=== PATIENT | male | born 1940 | race Two or more races ===

== ENCOUNTER 2024-02-29 07:50 | Outpatient (CLI) | payer MEDICARE, SELFPAY | END 2024-02-29 07:51 | disposition home or self-care (01) | LOC: NFLDREF 03-02 03:07 | PROVIDERS: Visit Provider Internal Medicine Nephrology | DX: E11.9 Type 2 diabetes mellitus without complications (principal); I10 Essential (primary) hypertension; N18.32 Chronic kidney disease, stage 3b; Z87.438 Personal history of other diseases of male genital organs | CPT/HCPCS: 80069; 82043; 82570; 87086 ==

== ENCOUNTER 2024-09-22 09:15 | Outpatient (CLI) | payer MEDICARE, SELFPAY | END 2024-09-22 09:16 | disposition home or self-care (01) | LOC: NFLDREF 10-03 15:02 | PROVIDERS: Visit Provider Internal Medicine Nephrology | DX: I10 Essential (primary) hypertension (principal); N18.32 Chronic kidney disease, stage 3b | CPT/HCPCS: 80053; 82043; 82570; 87086 ==

== ENCOUNTER 2024-10-25 07:40 | Outpatient (CLI) | payer MEDICARE, SELFPAY | END 2024-10-25 07:41 | disposition home or self-care (01) | LOC: NFLDREF 10-29 01:40 | PROVIDERS: Visit Provider Internal Medicine Nephrology | DX: N18.32 Chronic kidney disease, stage 3b (principal) | CPT/HCPCS: 80069 ==

== ENCOUNTER 2025-03-27 08:00 | Outpatient (CLI) | payer MEDICARE, SELFPAY | END 2025-03-27 08:01 | disposition home or self-care (01) | LOC: NFLDREF 03-28 15:23 | PROVIDERS: Visit Provider Internal Medicine Nephrology | DX: N18.32 Chronic kidney disease, stage 3b (principal) | CPT/HCPCS: 80069; 82043; 82570; 87086 ==

== ENCOUNTER 2025-05-31 07:51 | Emergency (ER) | payer MEDICARE, SELFPAY ==
--- OUTSIDE RECORDS SUMMARY | 2023-01-09 19:00 | XMS_ITS | Continuity of Care Document ---
Author Organization [facility] Address [address] [place] [address] Phone Care Team Providers Care Tub Mender Name Role Phone Rafita [place] MD Unavailable Unavailable Advance Directives Directive Yes / No Effective Date File Name No Information Encounters Encounter Description Practice Location Reason(s) For Visit Diagnoses Date Provider Providers Copied on Encounter [facility], [address], [place], [id number], [place] tel:[phone] [facility] No Information 3 Ashwin Eller. [address], [address], [place], [place], [id number] , [place]. tel:[phone] Family History Family Member Type Diagnosis Age At Onset No Information Payers Payer name Insurance type Covered constitution party ID Authoriza tion(s) No Information Social History Type Description Quantity Date Captured Comments Sex Male Smoking Status No Information Chief Complaint And Reason For Visit No Information Reason For Referral Reason For Referral No Information History Of Present Illness Encounter Date Complaint History Of Prese nt Illness No Information Functional Status Date Functional Assessmen t No Information Instructions Date Instruction Additional Infor mation 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, unspecified, 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, unspecified, bilateral Impression/Plan Related to Type 2 diabetes mellitus without complications Impression/Plan 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, right eye Impression/Plan Related to Type 2 diabetes mellitus without complications Impression/Plan Related to 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, 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, unspecified, 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, unspecified, bilateral Impression/Plan Related to Presb yopia Impression/Plan Related to Regul ar astigmatism, bilateral Impression/Plan Related to Myopi a, bilateral Impression/Plan Related to 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, bilateral Impression/Plan Related to Type 2 diabetes mellitus without complications Impression/Plan 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 Impression/Plan Related to 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, bilateral Impression/Plan Related to Type 2 diabetes mellitus without complications Impression/Plan 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
--- OUTSIDE RECORDS SUMMARY | 2023-01-09 19:00 | XMS_ITS | Continuity of Care Document ---
Author Organization [facility] Address [address] [place] [address] Phone Care Team Providers Care Panel Builder Name Role Phone Rafita [place] MD Unavailable Unavailable Advance Directives Directive Yes / No Effective Date File Name No Information Encounters Encounter Description Practice Location Reason(s) For Visit Diagnoses Date Provider Providers Copied on Encounter [facility], [address], [place], [id number], [place] tel:[phone] [facility] No Information 3 Ashwin Eller. [address], [address], [place], [place], [id number] , [place]. tel:[phone] Family History Family Member Type Diagnosis Age [...]
--- OUTSIDE RECORDS SUMMARY | 2025-04-27 07:38 | XMS_ITS | Encounter Summary ---
Author Organization [facility] Address [address] [place] [address] Care Team Providers Care Paint Specialist Name Role Phone Alexandre Patel M.D. [facility] Encounter Details Date Type Department Care Team (Latest Contact Info) Description 04/27/2025 7:38 AM CDT - 04/27/2025 11:59 PM CDT Hospital Encounter Department of Laboratory Medicine in [place], [place] [address] [place] [phone] Alexandre Patel M.B.B.S., MErnesto. [address] [place] [phone] Elevated Prostate-Specific Antigen; Diabetes Mellitus Type 2 With Diabetic Chronic Kidney Disease (HCC) Discharge Disposition: Home or Self Care Social History Tobacco Use Types Packs/Day Years Used Date Smoking Tobacco: Former Cigarettes 1 3 1 964 - 07/29/1967 Smokeless Tobacco: Never Alcohol Use Standard Drinks/Week Comments Not Currently 0 (1 standard drink = 0.6 oz pur e alcohol) [facility] Utilities Answer Date Recorded In the past 12 months has e electric, gas, oil, or water [employer] threatened to shut off services in your home? No 10/21/2024 Humiliation, Afraid, Rape, and Kick questionnair e Answer Date Recorded Within the last year, have y ou been afraid of your partner or ex-partner? No 04/29/2023 Within the last year, have y ou been humiliated or emotionally abused in other ways by your partner or ex-partner? No Within the last year, have y ou been kicked, hit, slapped, or otherwise physically hurt by your partner or ex-partner? No 04/29/2023 Within the last year, have y ou been raped or forced to have any kind of sexual activity by your partner or ex-partner? No 04/29/2023 Hunger Vital Sign Answer Date Recorded Within the past 12 months, y ou worried that your food would run out before you got the money to buy more. Never true 10/21/19 25 Within the past 12 months, t he food you bought just didn't last and you didn't have money to get more. Never true 10/21/2024 PRAPARE - Transportation Answer Date Re corded In the past 12 months, has l ack of transportation kept you from medical appointments or from getting medications? No 03/2025 In the past 12 months, has l ack of transportation kept you from meetings, work, or from getting things needed for daily living? No 10/21/2024 Housing Stability Answer Date Recorded What is your living situation today? [facility] to live 10/21/2024 Sex and Gender Information Value Date Recorded Sex Assigned at Male 04/29/2023 9:01 AM CDT Legal Sex Male 11:07 AM CDT Gender Identity Male 04/29/2023 9:01 AM CDT Sexual Orientation Not on file documented as of this encounter Medications at Time of Discharge amLODIPine (Norvasc) 10 mg tabletIndications :Hypertension Essential Primary TAKE 1 TABLET DAILY 90 tablet 3 03/31/2025 ascorbic acid, vitamin C, (Vitamin C) 1,000 mg tablet Take 1,000 mg by mouth daily. 10/31/[address] tablet Take 81 mg by mouth daily. calcium citrate (CALCITRATE) 950 mg (200 mg calcium) tablet Take by mouth daily with breakfast. [email or web address] brand cholecalciferol, vitamin D3, (cholecalciferol) 25 mcg (1,000 Unit) tablet Take 25 mcg by mouth daily. co-enzyme Q-10 (CO Q-10) 100 mg capsule Take 200 mg by mouth daily. cyanocobalamin (Vitamin B-12) 500 mcg tablet Take 500 mcg by mouth daily. dapagliflozin propanediol (Farxiga) 5 mg tabletIndications :Chronic Kidney Disease (CKD), Stage 3b Glomerular Filtration Rate (GFR) 30 To 44 (HCC),Hypertensio n Essential Primary,Proteinur ia Take 1 tablet (5 mg total) by mouth daily. Brand name only 90 tablet 3 10/07/2024 6 fluticasone propionate (Flonase) 50 mcg/actuation nasal sprayIndications: Rhinitis Allergic USE 2 SPRAYS IN EACH NOSTRIL DAILY 48 g 3 03/31/2025 hydrALAZINE (Apresoline) 50 mg tabletIndications :Hypertension Essential Primary Take 1 tablet (50 mg total) by mouth 3 (three) times a day. 270 tablet 3 12/27/2024 magnesium gluconate (Magonate) 27.5 mg of magnesium (500 mg) tablet Take 27.5 mg of magnesium by mouth daily. multivitamin tablet Take 1 tablet by mouth daily. olmesartan (Benicar) 40 mg tabletIndications :Hypertension Essential Primary TAKE 1 TABLET DAILY 90 tablet 3 04/28/2025 rosuvastatin (Crestor) 10 mg tabletIndications :Hyperlipidemia Take 1 tablet (10 mg total) by mouth daily. 90 tablet 3 11/29/2024 6 semaglutide (Ozempic) 1 mg/dose (4 mg/3 mL) injectionIndicati ons:Diabetes Mellitus Type 2 With Diabetic Chronic Kidney Disease (HCC) Inject 1 mg under the skin every 7 (seven) days. 3 mL 3 01/27/2025 tamsulosin (Flomax) 0.4 mg 24 hr capsuleIndication s:Benign Prostatic Hyperplasia Without Obstruction TAKE 1 CAPSULE DAILY 90 capsule 3 03/31/2025 torsemide (Demadex) 20 mg tabletIndications :Hypertension Essential Primary Take 1 tablet (20 mg total) by mouth daily. 01/31/2025 6 UNABLE TO FIND daily. Med Name: Super C (nature made) UNABLE TO FIND daily. Med Name: Prostate Plus vitamin E 180 mg (400 Unit) capsule Take 180 mg by mouth daily. carvediloL (Coreg) 25 mg tabletIndications :Hypertension Essential Primary TAKE 1 TABLET TWICE DAILY WITH MEALS 180 tablet 3 08/24/2024 5 ludeufhh-nbd-ohhn ous sulfate (One Daily Multi-Vit w-Mineral) 4.5 mg iron tablet Take 1 capsule by mouth daily. 10/31/2009 5 olmesartan (Benicar) 40 mg tabletIndications :Hypertension Essential Primary take 1 tablet daily 90 tablet 3 05/10/2024 5 documented as of this encounter Plan of Treatment Not on file documented as of this encounter Procedures Procedure Name Priority Date/Time Associated Diagnosis Comments PROSTATE-SPECIFIC AG (PSA) SCRN, S Routine 04/27/2025 7:46 AM CDT Elevated Prostate-Specific Antigen HEMOGLOBIN A1C, B Routine 04/27/2025 7:4 6 AM CDT Diabetes Mellitus Type 2 With Diabetic Chronic Kidney Disease (HCC) documented in this encounter Results * (ABNORMAL) Hemoglobin A1c (04/27/2025 7:46 AM CDT) Hemoglobin A1c, B 7.1(H) 4.2 - 5.6 % 04/27/2025 11:02 AM CDT [facility] Comment: Hemoglobin A1c values greater than or equal to 6.5 percent are diagnostic for diabetes mellitus. Diagnosis should be confirmed by repeat testing. In diabetic patients, HbA1c goals should be discussed with healthcare provider. Blood (Blood, Venous) 04/27/2025 7:46 AM CDT 04/27/2025 10:37 AM CDT us Alexandre [place] M.D. LAB BLOOD ADD-O N Final Result [facility] [address] [place] [address], [place] [facility] [place] [address] [place] [address] * (ABNORMAL) PSA (Prostate-Specific Antigen) Screen (04/27/2025 7:46 AM CDT) Prostate-Specific Ag 11.4(H) <=7.2 ng/mL 04/27/2025 11:48 AM CDT OW Comment: ----ADDITIONAL INFORMATION---- The testing method is an electrochemiluminescence assay manufactured by [employer] and performed on the Modular or Anibal system. Values obtained with different assay methods or kits may be different and cannot be used interchangeably. Test results cannot be interpreted as absolute evidence for the presence or absence of malignant disease. Blood (Blood, Venous) 04/27/2025 7:46 AM CDT 04/27/2025 10:37 AM CDT Alexandre [place] M.D. LAB BLOOD ADD-O N Final Result [facility] [address] [place] [address], [facility] [place] [address] [place] [address] documented in this encounter Visit Diagnoses Diagnosis Elevated Prostate-Specific Antigen Diabetes Mellitus Type 2 With Diabetic Chronic Kidney Disease (HCC) documented in this encounter Additional Health Concerns Assessment Noted Time A fall risk assessment has been complete d for the patient 02/23/2024 8:58 AM CDT documented as of this encounter Care Teams Paint Specialist Relationship Specialty Start Date End Date Alexandre Patel M.B.B.S., M.D. [address] [place] [phone] PCP - General Family Medicine 09/24/23 documented as of this encounter
--- OUTSIDE RECORDS SUMMARY | 2025-05-02 08:40 | XMS_ITS | Encounter Summary ---
Author Organization [facility] Address [address] [place] [address] Care Team Providers Care Fire Crew Specialist Name Role Phone Alexandre Patel M.D. Primary Care [facility] Reason for Referral * Outpatient (Routine) - Authorized Specialty Diagnoses / Procedures Referred By Aron finch Referred To Contact Family Medicine Diagnoses Diabetes Mellitus Type 2 With Diabetic Chronic Kidney Disease (HCC) Alexandre Patel M.B.B.S., M.D. [address] [place] [phone] Phone: tel: fax: [facility] Region Referral ID Status Reason Start Date Expiration Date V isits Requested Visits Authorized [id number] Authorized 05/02/2025 11/01/2026 1 1 Reason for Visit * Reason Comments Follow-up 3 month labs done and AWV after with RN * Appointment Request (Routine) - Closed Specialty Diagnoses / Procedures Referred By Aron finch Referred To Contact Family Medicine Referral ID Status Reason Start Date Expiration Date Visits Re quested Visits Authorized [id number] Closed 03/21/2025 06/21/2026 1 1 Encounter Details Date Type Department Care Team (Late st Contact Info) Description 05/02/2025 8:40 AM CDT Office Visit Department of Family Medicine, [facility], in [place], [place] [address] [place] [phone] Alexandre Patel M.B.B.S., M.D. [address] [facility] [place] [phone] Benign Prostatic Hyperplasia Without Obstruction (Primary Dx); Hypertension Essential Primary; Diabetes Mellitus Type 2 With Diabetic Chronic Kidney Disease (HCC) Social History Tobacco Use Types Packs/Day Years Used Date Smoking Tobacco: Former Cigarettes 1 3 1 964 - 07/29/1967 Smokeless Tobacco: Never Tobacco Cessation:Counseling Given: Not Answered Alcohol Use Standard Drinks/Week Comments Not Currently 0 (1 standard drink = 0.6 oz pur e alcohol) Humiliation, Afraid, Rape, and Kick questionnair e [...] the money to buy more. Never true 05/02/20 25 Within the past 12 months, t he food you bought just didn't last and you didn't have money to get more. Never true 05/02/2025 PRAPARE - Transportation Answer Date Re corded In the past 12 months, has l ack of transportation kept you from medical appointments or from getting medications? No 04/14 In the past 12 months, has l ack of transportation kept you from meetings, work, or from getting things needed for daily living? No 05/02/2025 [facility] Utilities Answer Date Recorded In the past 12 months has th e electric, gas, oil, or water company threatened to shut off services in your home? No 05/02/2025 Housing Stability Answer Date Recorded What is your living situation today? [facility] place to live 05/02/2025 Sex and Gender Information Value Date Recorded Sex Assigned at Male 04/29/2023 9:01 AM CDT Legal Sex Male 11:07 AM CDT Gender Identity Male 04/29/2023 9:01 AM CDT Sexual Orientation Not on file documented as of this encounter Last Filed Vital Signs Vital Sign Reading Time Taken Comments Blood Pressure 135/77 05/02/2025 8:35 AM CDT Pulse 75 05/02/2025 8:35 AM CDT Temperature 36.6 C (97.9 F) 05/02/2025 8:35 AM CDT Respiratory Rate 20 05/02/2025 8:35 AM CDT Oxygen Saturation - - Inhaled Oxygen Concentration - - Weight 78 kg (171 lb 13.6 oz) 05/02/2025 8:35 AM CDT Height 179 cm (5' 10.47) 05/02/2025 8:35 AM CDT Body Mass Index 24.33 05/02/2025 8:35 AM CDT documented in this encounter Progress Notes * Alexandre Patel M.B.B.S., MErnesto. - 05/02/2025 8:40 AM CDT DATE OF VISIT: 05/02/2025 SUBJECTIVE CHIEF COMPLAINT / REASON FOR VISIT Haim Scott is a 85 y.o. male who presents for evaluation of Follow- up (3 month labs done 04/27 and AWV after with RN ). The patient verbally consented to an audio recording of their visit to assist with the completion of documentation. History of Present Illness Haim Scott is an 85 year old male with diabetes and kidney disease who presents for a follow-up visit. He frequently feels cold. His prefers a cooler home environment, keeping the house at 68 degrees, which contributes to his feeling cold. He is not engaging in activities to maintain muscle mass due to pain associated with arthritis in his hands. He has difficulty with tasks such as opening bottles and cans due to arthritis in his hands. He uses Voltaren gel for pain relief. He received a shingles vaccine about five or six years ago in [place]. He has not received the RSV vaccine and is hesitant about the COVID vaccine due to a past negative experience with the flu vaccine, which made him very sick. He is currently on Ozempic for diabetes management without side effects such as nausea or abdominaldiscomfort. He is also on carvedilol and Flomax, with no reported issues. He urinates two to three times a night but does not have trouble urinating. He has a history of allergies to pollen and atenolol, although he is unsure about the latter as he does not recall taking it. He is currently on carvedilol, which is in the same class as atenolol, without any issues. OBJECTIVE VITAL SIGNS BP 135/77 (BP Location: Left arm, Patient Position: Sitting, Cuff Size: Regular) Pulse 75 Temp 36.6 ??C (Temporal) Resp 20 Ht 179 cm Wt 78 kg BMI 24.33 kg/m?? Physical Exam Vitals reviewed. Constitutional General: He is not in acute distress. Appearance: Normal appearance. He is not ill-appearing. HENT Head: Normocephalic and atraumatic. Cardiovascular Rate and Rhythm: Normal rate and regular rhythm. Pulmonary Effort: Pulmonary effort is normal. No respiratory distress. Breath sounds: Normal breath sounds. No wheezing. Musculoskeletal General: Normal range of motion. Cervical back: Normal range of motion. No rigidity. Neurological General: No focal deficit present. Mental Status: He is alert and oriented to person, place, and time. Physical Exam ASSESSMENT/ PLAN Hypertension Essential Primary Blood pressure is well-controlled with current medication regimen, including carvedilol. - Renew carvedilol prescription. Orders: carvediloL (Coreg) 25 mg tablet; Take 1 tablet (25 mg total) by mouth 2 (two) times a day with meals. Diabetes Mellitus Type 2 With Diabetic Chronic Kidney Disease (HCC) Type 2 Diabetes Mellitus A1c is well-controlled with current treatment, including Ozempic. Plans to increase Ozempic dose tooptimize benefits, as he tolerates the medication well without side effects. - Increase Ozempic to 2 mg. - Order A1c tests every 3 months for the next year. Chronic Kidney Disease Under the care of a extruder operator horizontal with regular follow-ups every six months. Lime Puller manages kidney function monitoring. - Continue nephrology follow-ups every six months. Orders: semaglutide (Ozempic) 2 mg/dose (8 mg/3 mL) injection; Inject 2 mg under the skin every 7 (seven) days. Hemoglobin A1c; Future Hemoglobin A1c; Future Hemoglobin A1c; Future Hemoglobin A1c; Future Family Medicine office visit (clinic); Future Benign Prostatic Hyperplasia Without Obstruction Reports nocturia but no difficulty urinating. Currently on Flomax for BPH management. - Continue Flomax for BPH management. 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 Using Voltaren gel for relief. - Continue Voltaren gel for pain management. Follow-up Scheduled for an MRI for elevated PSA, and results will be reviewed and communicated. Follow-up appointment scheduled for July, with flexibility to reschedule if needed. - Review MRI results and communicate findings. - Schedule follow-up appointment in July, with flexibility to reschedule if needed. documented in this encounter Miscellaneous Notes * Assessment & Plan Note - Alexandre Patel M.B.B.S., M.D. - 05/02/2025 8:40 AM CDTAssociated Problem(s): Hypertension Essential Primary Blood pressure is well-controlled with current medication regimen, including carvedilol. - Renew carvedilol prescription. Orders: carvediloL (Coreg) 25 mg tablet; Take 1 tablet (25 mg total) by mouth 2 (two) times a day with meals. * Assessment & Plan Note - Alexandre Patel M.B.B.S., M.D. - 05/02/2025 8:40 AM CDTAssociated Problem(s): Diabetes Mellitus Type 2 With Diabetic Chronic Kidney Disease (HCC) Type 2 Diabetes Mellitus A1c is well-controlled with current treatment, including Ozempic. Plans to increase Ozempic dose tooptimize benefits, as he tolerates the medication well without side effects. - Increase Ozempic to 2 mg. - Order A1c tests every 3 months for the next year. Chronic Kidney Disease Under the care of a extruder operator horizontal with regular follow-ups every six months. Lime Puller manages kidney function monitoring. - Continue nephrology follow-ups every six months. Orders: semaglutide (Ozempic) 2 mg/dose (8 mg/3 mL) injection; Inject 2 mg under the skin every 7 (seven) days. Hemoglobin A1c; Future Hemoglobin A1c; Future Hemoglobin A1c; Future Hemoglobin A1c; Future Family Medicine office visit (clinic); Future * Assessment & Plan Note - Alexandre Patel M.B.B.S., M.D. - 05/02/2025 8:40 AM CDTAssociated Problem(s): Benign Prostatic Hyperplasia Without Obstruction Reports nocturia but no difficulty urinating. Currently on Flomax for BPH management. - Continue Flomax for BPH management. 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 Using Voltaren gel for relief. - Continue Voltaren gel for pain management. Follow-up Scheduled for an MRI for elevated PSA, and results will be reviewed and communicated. Follow-up appointment scheduled for July, with flexibility to reschedule if needed. - Review MRI results and communicate findings. - Schedule follow-up appointment in July, with flexibility to reschedule if needed. documented in this encounter Plan of Treatment Scheduled Orders Name Type Priority Associated Diagnoses Orde r Schedule Hemoglobin A1c Lab Routine Diabetes Mellitus Type 2 With Diabetic Chronic Kidney Disease (HCC) Expected: 11/02/2025 (Approximate), Expires: 08/02/2026 Hemoglobin A1c Lab Routine Diabetes Mellitus Type 2 With Diabetic Chronic Kidney Disease (HCC) Expected: 08/02/2025 (Approximate), Expires: 08/02/2026 Hemoglobin A1c Lab Routine Diabetes Mellitus Type 2 With Diabetic Chronic Kidney Disease (HCC) Expected: 05/02/2026 (Approximate), Expires: 08/02/2026 Hemoglobin A1c Lab Routine Diabetes Mellitus Type 2 With Diabetic Chronic Kidney Disease (HCC) Expected: 01/30/2026 (Approximate), Expires: 08/02/2026 Scheduled Referrals Name Type Priority Associated Diagnoses Orde r Schedule Family Medicine office visit (clinic) Outpatient Referral Routine Diabetes Mellitus Type 2 With Diabetic Chronic Kidney Disease (HCC) Expected: 08/02/2025 (Approximate), Expires: 08/02/2026 documented as of this encounter Visit Diagnoses Diagnosis Benign Prostatic Hyperplasia Without Obstruction- Primary Hypertension Essential Primary Diabetes Mellitus Type 2 With Diabetic Chronic Kidney Disease (HCC) documented in this encounter Additional Health Concerns Assessment Noted Time A fall risk assessment has been complete d for the patient 02/23/2024 8:58 AM CDT documented as of this encounter Care Teams Fire Crew Specialist Relationship Specialty Start Date End Date Alexandre Patel M.B.BKishaSKisha, M.Neil. [address] [place] [phone] PCP - General Family Medicine 09/24/23 documented as of this encounter
--- OUTSIDE RECORDS SUMMARY | 2025-05-02 09:00 | XMS_ITS | Encounter Summary ---
Author Organization [facility] Address [address] [place] [address] Care Team Providers Care Assistant Professor Of Music Name Role Phone Alexandre Patel M.D. Primary Care P andi Reason for Referral * Outpatient (Routine) - Authorized Specialty Diagnoses / Procedures Referred By Aron finch Referred To Contact Alexandre Patel M.B.B.S., M.D. [address] [place] [phone] Phone: tel: fax: [facility] Region Referral ID Status Reason Start Date Expiration Date V isits Requested Visits Authorized [id number] Authorized 05/02/2025 11/01/2026 1 1 Scheduling Instructions 12-Month Medicare Visit Reason for Visit * Reason Comments Medicare Annual Wellness Visit Subsequen t * Outpatient (Routine) - Closed Specialty Diagnoses / Procedures Referred By Contpete t Referred To Contact Alexandre Patel M.B.B.S., M.D. [address] [place] [phone] Phone: tel: fax: [facility] Region Referral ID Status Reason Start Date Expiration Date Visits Re quested Visits Authorized [id number] Closed 02/14/2025 08/16/2026 1 1 Encounter Details Date Type Department Care Team (Late st Contact Info) Description 05/02/2025 9:00 AM CDT Office Visit Department of Family Medicine, [facility], in [place], [place] [address] [place] [phone] Alexandre Patel M.B.B.S., MJanett [address] [place] [phone] Rhonda Lutz R.N. Annual Medicare Examination Return (Primary Dx) Social History Tobacco Use Types Packs/Day Years [...] things needed for daily living? No 05/02/2025 [facility] Utilities Answer Date Recorded In the past 12 months has th e electric, gas, oil, or water company threatened to shut off services in your home? No 05/02/2025 Housing Stability Answer Date Recorded What is your living situation today? I have a naren place to live 05/02/2025 Sex and Gender Information Value Date Recorded Sex Assigned at Male 04/29/2023 9:01 AM CDT Legal Sex Male 11:07 AM CDT Gender Identity Male 04/29/2023 9:01 AM CDT Sexual Orientation Not on file documented as of this encounter Patient Instructions * Patient Instructions* Rhonda Lutz R.N. - 05/02/2025 9:00 AM CDT Thank you for coming in today! Consider: - Adding a variety of fruits and vegetables to your diet and/or limiting processed foods - Preventative immunizations; RSV, Hepatitis B, and Covid - at pharmacy, if desired. - Reviewing and completing an Advanced Health Care Directive and bringing in a copy to scan for your health record - Starting an exercise routine, start slow. Example: walking 10-15 minutes 3 to 4 times a week and increasing to 30 minutes 3 to 4 times a week; can be done in a mall or large store if outside is notan option - Yearly dental cleanings - Yearly eye exams Continue: - Eating a healthy diet; a variety of fruits and vegetables, minimizing processed foods and eating out - Keeping your home free of clutter, minimizing fall risks - Remaining physically active, following an exercise routine if you have one, or being up and moving frequently throughout the day - Remaining active in your community; group activities, volunteering - Staying up to date with your provider, keeping annual exams or follow ups, communicating health changes documented in this encounter Progress Notes * Rhonda Lutz R.N. - 05/02/2025 9:00 AM CDT HEALTH ASSESSMENT Reason For Visit Patient presents with Medicare Annual Wellness Visit Subsequent Face to Face The following portions of the patient's history were reviewed and updated as appropriate: allergies, medications, family history, social history, surgical history and care team/suppliers. VITALS Blood Pressure: 135/77 (05/02/2025 8:35 AM) Temperature: 36.6 ??C (05/02/2025 8:35 AM) Temp Source: Temporal (05/02/2025 8:35 AM) Pulse Rate: 75 (05/02/2025 8:35 AM) Resp Rate: 20 (05/02/2025 8:35 AM) BMI (Calculated): 24.3 kg/m?? (05/02/2025 8:35 AM) Height: 179 cm (05/02/2025 8:35 AM) Weight: 78 kg (05/02/2025 8:35 AM) Health Risk Assessment and Social Drivers of Health Health Risk Assessment (HRA) completed and reviewed: Yes Social Drivers of Health (SDOH) questionnaires were reviewed during this visit. The following concerns were prioritized to be addressed: No concerns identified. Spent 5 minutes reviewing the SDOH questionnaire responses with the patient. Depression Screening PHQ-2 Score: (Proxy-Rptd) 0 Cognitive Assessment Cognitive function assessed by direct observation without concerns. Current Opioid Use None Education regarding non-opioid options for pain management not applicable at this time. FUNCTIONAL/HOME ENVIRONMENT History of falls: Have you fallen within the last year or do you fear you might fall?: (Patient-Rptd) No (05/02/2025 8:16 AM) Do you use an assisted device to walk? (Walker, cane, wheelchair, crutch): (Patient-Rptd) No (05/02/2025 8:16 AM) Today, do you feel any of the following? Weak, dizzy, shaky, or unsteady?: (Patient-Rptd) No (05/02/2025 8:16 AM) Have you taken any medication within the last 6 hours which may make you feel drowsy? Such as sleep, pain, or anxiety medication: (Patient-Rptd) No (05/02/2025 8:16 AM) Home Safety Patient's home contains the following: Throw Rugs No. Adequate lighting: Yes. Slippery bathtub and/or shower surfaces: No. Grab bars installed in the bathroom: Yes. Handrails on steps/stairs: Yes. Functional smoke/carbon monoxide alarms: Yes. Patient is reminded to change the batteries every 6 months if device is not A/C powered or hard-wired into the home. Advance Directive Advance Directives: Not Received Advance directive information given. Preventive Services Schedule Health Maintenance Topic Date Due Diabetic Eye Exam Never done COVID-19 Vaccine (2023- season) 2025 (Originally 05/15/2024) RSV vaccine - (32-36 weeks) or 60+ years (1 - 1-dose 75+ series) 05/03/2025 (Originally 2017) Hepatitis B Vaccines (1 of 3 - Risk 3-dose series) 05/03/2025 (Originally 2002) Zoster Vaccines (2 of 3) 05/03/2025 (Originally 04/26/2021) Influenza Vaccine (1) 06/14/2025 Diabetic Office Visit with Foot Exam 10/24/2025 Hemoglobin A1C 10/28/2025 Visit: Chronic Disease, age 18+ 01/31/2026 Creatinine Level (Kidney Function Test) 03/27/2026 Potassium Level 03/27/2026 Sodium Level 03/27/2026 Urine Albumin 03/27/2026 Office Visit for Blood Pressure Check / Re-check 05/02/2026 Visit: Medicare Annual Wellness 05/03/2026 DTaP,Tdap,and Td Vaccines (2 - Td or Tdap) 12/21/2030 Depression Screening (Annual PHQ-2) Completed Fall Risk Screen (Annual) Completed Pneumococcal vaccine (50+ years) Completed IPV Vaccines Aged Out After Visit Summary (AVS) reviewed and patient will access via patient online services documented in this encounter Plan of Treatment Scheduled Referrals Name Type Priority Associated Diagnoses Orde r Schedule Primary Care nurse visit (clinic) - [facility]; Medicare Annual Wellness Outpatient Referral Routine Expected: 05/02/2026 (Approximate), Expires: 08/02/2026 documented as of this encounter Visit Diagnoses Diagnosis Annual Medicare Examination Return- Primary documented in this encounter Additional Health Concerns Assessment Noted Time A fall risk assessment has been complete d for the patient 02/23/2024 8:58 AM CDT documented as of this encounter Care Teams Assistant Professor Of Music Relationship Specialty Start Date End Date Alexandre Patel M.B.B.S., Mansoor. [address] [place] [address] [place] [phone] PCP - General Family Medicine 09/24/23 documented as of this encounter
--- OUTSIDE RECORDS SUMMARY | 2025-05-03 06:49 | XMS_ITS | Encounter Summary ---
Author Organization [facility] Address [address] [place] [address] Care Team Providers Care Stem Cutter Name Role Phone Alexandre Patel M.D. Primary Care andi Reason for Referral * MRI/CAT/PET Scan (Routine) - Closed Specialty Diagnoses / Procedures Referred By Aron finch Referred To Contact Radiology Diagnoses Elevated Prostate-Specific Antigen Procedures MR Prostate without and with IV Contrast Alexandre Patel M.B.B.S., M.D. [address] [place] [address] Phone: tel: fax: [facility] Region Referral ID Status Reason Start Date Expiration Date Visits Re quested Visits Authorized [id number] Closed 05/01/2025 08/01/2026 1 1 Reason for Visit * MRI/CAT/PET Scan (Routine) - Closed Specialty Diagnoses / Procedures Referred By Aron finch Referred To Contact Radiology Diagnoses Elevated Prostate-Specific Antigen Procedures MR Prostate without and with IV Contrast Alexandre Patel M.B.BElizabeth James [address] [place] [address] Phone: tel: fax: [facility] Referral ID Status Reason Start Date Expiration Date Visits Re quested Visits Authorized [id number] Closed 05/01/2025 08/01/2026 1 1 Encounter Details Date Type Department Care Team (Latest Contact Info) Description 05/03/2025 6:49 AM CDT - 05/03/2025 11:59 PM CDT Hospital Encounter Department of Radiology in [place], [place] [address] [place] [phone] Alexandre Patel M.B.B.S., M.D. [address] [place] [phone] Elevated Prostate-Specific Antigen Discharge Disposition: Home or Self Care Social [...] things needed for daily living? No 05/02/2025 [facility] Utilities Answer Date Recorded In the past 12 months has th e electric, gas, oil, or water company threatened to shut off services in your home? No 05/02/2025 Housing Stability Answer Date Recorded What is your living situation today? I have a [facility] place to live 05/02/2025 Sex and [...] tablet Take by mouth daily with breakfast. [employer] brand carvediloL (Coreg) 25 mg tabletIndications :Hypertension Essential Primary Take 1 tablet (25 mg total) by mouth 2 (two) times a day with meals. 180 tablet 3 05/02/2025 cholecalciferol, vitamin D3, (cholecalciferol) 25 mcg (1,000 [...] Brand name only 90 tablet 3 10/07/2024 fluticasone propionate (Flonase) 50 mcg/actuation nasal sprayIndications: [...] by mouth daily. 90 tablet 3 11/29/2024 semaglutide (Ozempic) 1 mg/dose (4 mg/3 mL) injectionIndicati ons:Diabetes Mellitus Type 2 With Diabetic Chronic Kidney Disease (HCC) Inject 1 mg under the skin every 7 (seven) days. 3 mL 3 01/27/2025 semaglutide (Ozempic) 2 mg/dose (8 mg/3 mL) injectionIndicati ons:Diabetes Mellitus Type 2 With Diabetic Chronic Kidney Disease (HCC) Inject 2 mg under the skin every 7 (seven) days. 3 mL 11 05/02/2025 tamsulosin (Flomax) 0.4 mg 24 hr capsuleIndication [...] capsule Take 180 mg by mouth daily. documented as of this encounter Plan of Treatment Not on file documented as of this encounter Procedures Procedure Name Priority Date/Time Associated Diagnosis Comments MR PROSTATE WITHOUT AND WITH IV CONTRAST RAD - Routine (most inpatients and all outpatients) 05/03/2025 8:09 AM CDT Elevated Prostate-Specific Antigen GLUCOSE POCT, B Routine 05/03/2025 7:11 AM CDT documented in this encounter Results * MR Prostate without and with IV Contrast (05/03/2025 8:09 AM CDT) Anatomical Region Laterality Modality Pelvis, Abdominal RST LOS, A bdominal ARZ LOS, Abdominal FLA LOS N/A Magnetic Resonance Impressions 05/03/2025 9:51 AM CDT PIRADS 3- Intermediate (the presence of clinically significant cancer is equivocal). - PIRADS 3 lesion in the left peripheral zone. - Multiple BPH nodules. Narrative 05/03/2025 9:51 AM CDT EXAM: MR PROSTATE WITHOUT AND WITH IV CONTRAST CLINICAL HISTORY: Screening - biopsy naive. Most Recent PSA 11.4 ng/mL. COMPARISON: None PROSTATE: Volume: 88.94cc (PSA density .12) Exam quality: Good. Peripheral zone: Focal finding, as below Transition zone: Numerous BPH nodules. Lesion # 1 Size: 1.7 x 1.3 x 1.2cm, 1.28cc Zone: Peripheral zone Location: Left posterior lateral at midgland. (Series 4 image 18) T2WI: Non-circumscribed, rounded, moderate hypointensity (T2WI score 3) DWI: Mild diffusion restriction. (ADC: 3, Markedly hypointense on ADC or markedly hyperintense on high b-value DWI, but not both) (DWI score 3) DCE: Negative. Overall category: PIRADS 3- Intermediate (the presence of clinically significant cancer is equivocal). LOCAL STAGING: Capsule: Intact. Neurovascular bundle invasion: Absent Seminal vesicles invasion: Absent Other organ invasion: Absent LYMPH NODES: Negative for suspicious lymph node(s). BONES: Negative for suspicious bone lesion(s). OTHER FINDINGS: Atherosclerotic calcification of the left common femoral artery. Visualized bowel is normal in caliber. Bladder is unremarkable. PROSTATE MRI TECHNIQUE: Multiparametric MRI of the prostate was performed at [address] with integrated endorectal coil and surface coil. High resolution T2WI, DWI/ADC, and DCE imaging with IV contrast performed. Procedure Note Phi Hunter M.D. - 05/03/2025 EXAM: MR PROSTATE WITHOUT AND WITH IV CONTRAST CLINICAL HISTORY: Screening - biopsy naive. Most Recent PSA 11.4 ng/mL. COMPARISON: None PROSTATE: Volume: 88.94cc (PSA density .12) Exam quality: Good. Peripheral zone: Focal finding, as below Transition zone: Numerous BPH nodules. Lesion # 1 Size: 1.7 x 1.3 x 1.2cm, 1.28cc Zone: Peripheral zone Location: Left posterior lateral at midgland. (Series 4 image 18) T2WI: Non-circumscribed, rounded, moderate hypointensity (T2WI score 3) DWI: Mild diffusion restriction. (ADC: 3, Markedly hypointense on ADC ormarkedly hyperintense on high b-value DWI, but not both) (DWI score 3) DCE: Negative. Overall category: PIRADS 3- Intermediate (the presence of clinicallysignificant cancer is equivocal). LOCAL STAGING: Capsule: Intact. Neurovascular bundle invasion: Absent Seminal vesicles invasion: Absent Other organ invasion: Absent LYMPH NODES: Negative for suspicious lymph node(s). BONES: Negative for suspicious bone lesion(s). OTHER FINDINGS: Atherosclerotic calcification of the left common femoralartery. Visualized bowel is normal in caliber. Bladder is unremarkable. PROSTATE MRI TECHNIQUE: Multiparametric MRI of the prostate was performedat [address] with integrated endorectal coil and surface coil. Highresolution T2WI, DWI/ADC, and DCE imaging with IV contrast performed. IMPRESSION: PIRADS 3- Intermediate (the presence of clinically significant cancer isequivocal). - PIRADS 3 lesion in the left peripheral zone. - Multiple BPH nodules. Alexandre Troy M.D. IMG MRI PROCEDU RES Final Result * Glucose, POCT (05/03/2025 7:11 AM CDT) Glucose, POCT, B 138 70 - 140 mg/dL 05/03/2025 7:11 AM CDT OWAT Blood 05/03/2025 7:11 AM CDT 05/03/2025 7:52 AM CDT Generic [facility] LAB POCT ORDERABLES-MANUAL Final Result [facility] [address] [place] [address], [facility] in [place] [address] [place] [address] documented in this encounter Visit Diagnoses Diagnosis Elevated Prostate-Specific Antigen documented in this encounter Administered Medications Inactive Administered Medications - up to 3 most recent administrations Medication Order MAR Action Action Date Dose Rate Site gadoterate meglumine 0.5 mmol/mL (376.9 mg/mL) injection 1.6-20 mL (Dotarem) 1.6-20 mL, intravenous, Once in imaging, contrast, Starting on Thu05/03/25 at 0721, For 1 dose Given 05/03/2025 8:04 AM CDT 20 mL glucagon injection 0.5-1 mg (GlucaGen) 0.5-1 mg, subcutaneous, Once, On Thu05/03/25 at 0745, For 1 dose, Dose per Radiant Medication Guidelines Given 05/03/2025 8:04 AM CDT 1 mg Right Upper Arm (Back) sodium chloride 0.9 % injection 1-100 mL 1-100 mL, intravenous, Once in imaging, line care, Starting on Thu05/03/25 at 0721, For 1 dose Given 05/03/2025 8:04 AM CDT 80 mL documented in this encounter Additional Health Concerns Assessment Noted Time A fall risk assessment has been complete d for the patient 02/23/2024 8:58 AM CDT documented as of this encounter Care Teams Stem Cutter Relationship Specialty Start Date End Date Alexandre Patel M.B.BKishaS., M.Neil. [address] [place] [address] [place] [phone] PCP - General Family Medicine 09/24/23 documented as of this encounter
--- OUTSIDE RECORDS SUMMARY | 2025-05-23 10:30 | XMS_ITS | Encounter Summary ---
Author Organization [facility] Address [address] [place] [address] Care Team Providers Care Steel Plate Printer Name Role Phone Alexandre Patel M.D. [facility] Reason for Visit * Outpatient (Routine) - Closed Specialty Diagnoses / Procedures Referred By Aron ifnch Referred To Contact Urology Diagnoses Elevated Prostate-Specific Antigen Alexandre Patel M.B.B.S., M.D. [address] [place] [phone] Phone: tel: fax: [facility] Referral ID Status Reason Start Date Expiration Date Visits Re quested Visits Authorized [id number] Closed 05/03/2025 11/02/2026 1 1 Encounter Details Date Type Department Care Team (Latest Contact Info) Description 05/23/2025 10:30 AM CDT Comprehensive Visit Department of Urology in [place], [place] [address] [place] [address] Daly Hurtado APRN, C.N.P. [address] [place] [address] Benign Prostatic Hyperplasia Without Obstruction (Primary Dx); Elevated Prostate-Specific Antigen Social History Tobacco Use Types Packs/Day Years [...] things needed for daily living? No 05/02/2025 [facility] Utilities Answer Date Recorded In the past 12 months has [facility] electric, gas, oil, or water company threatened to shut off services in your home? No 05/02/2025 Housing Stability Answer Date Recorded What is your living situation today? I have a [facility] place to live 05/02/2025 Sex and Gender Information Value Date Recorded Sex Assigned at Male 04/29/2023 9:01 AM CDT Legal Sex Male 11:07 AM CDT Gender Identity Male 04/29/2023 9:01 AM CDT Sexual Orientation Not on file documented as of this encounter Consult Notes * Daly Hurtado, KAREN, C.N.P. - 05/23/2025 10:30 AM CDT SUBJECTIVE REQUESTING PROVIDER Alexandre Patel M.B.B.S., M.D. REASON FOR CONSULT Elevated PSA HISTORY OF PRESENT ILLNESS Haim is a pleasant 85-year-old male here today for consultation for elevated PSA level and abnormal prostate MRI. He has a long history of elevated PSA levels. He previously lived in [place] and saw a urologistthere who was checking PSA levels yearly. He has not had prostate biopsy. He does not have family history of prostate cancer. PSA Table Oct 2017 5.17 Nov 2018 6.5 total, 1.0 free, ratio 15% March 2020 6.8 total, 1.24 free, ratio 18% February 2021 6.20 total, 1.11 free, Aug 2021 6.69 total, 1.44 free March 2022 6.9 total, 1.3 free, ratio 19% Apr 2023 7.16 Oct 2024 9.19 Jan 2025 9.5 March 27, 2025 UTI, Proteus, treated with Cefdinir 300 mg BID x 5 days Apr 27, 2025 11.4 May 03, 2025 MR Prostate, 89 cc, PSA Density 0.12, PI-RADS 3 nodule He reports that stream has been slower and he has increased urinary frequency. He takes tamsulosin 0.4 mg oral capsule daily. He is not concerned or bothered with his urinary symptoms. The following portions of the patient's history were reviewed and updated as appropriate: allergies, current medications, family history, medical history, social history, surgical history, and problem list. REVIEW OF SYSTEMS Genitourinary: Positive for difficulty urinating and frequent urination. OBJECTIVE There were no vitals filed for this visit. PHYSICAL EXAM Vitals and nursing note reviewed. General: Well developed, well nourished, well groomed elderly male in no acute distress. Neurological: Alert, cooperative, oriented x3. Appropriate mood and affect. Abdomen: Soft, non-tender, non-distended Extremities: Warm, without edema or ulcerations. ASSESSMENT / PLAN 1. Benign Prostatic Hyperplasia Without Obstruction (Primary) 2. Elevated Prostate-Specific Antigen We had an in-depth discussion about his PSA levels and causes of elevated PSA. We discussed that PSA is elevated for typically 3 reasons: Prostate cancer, prostatitis, or Benign Prostatic Hypertrophy. He had urinary tract infection less than one-month before PSA was checked. His prostate is also quite enlarged. We discussed that with PI-RADS 3 lesion, this has equivocal, there is typically a 30% likelihood of finding prostate cancer with a PI-RADS 3 lesion he does not feel strongly that he needs prostate biopsy and would like to wait at this time. I would recommend that his PSA be checked in a minimum of 6 months. Prostate exam should be performed afterwards. If patient has symptoms of urinary tract infection or has been treated for urinary tract infection recently, they should delay PSA testing as this can give a false elevation of PSA level. We discussed monitoring this in the UrologyDepartment, he wishes to continue with primary care monitoring. We discussed that enlarged prostate can predispose him to worsening urinary symptoms. If urinary symptoms worsen, we can certainly discuss increasing his tamsulosin. We also discussed possibility of going forward with cystoscopy and discussion about possible procedures if needed for the prostate. All questions answered today. Signed by: Daly Hurtado APRN, C.N.P. 05/23/2025 10:23 PM CDT documented in this encounter Plan of Treatment Not on file documented as of this encounter Visit Diagnoses Diagnosis Benign Prostatic Hyperplasia Without Obstruction- Primary Elevated Prostate-Specific Antigen documented in this encounter Additional Health Concerns Assessment Noted Time A fall risk assessment has been complete d for the patient 02/23/2024 8:58 AM CDT documented as of this encounter Care Teams Steel Plate Printer Relationship Specialty Start Date End Date Alexandre Patel M.B.B.S., Mansoor. [address] [place] [phone] PCP - General Family Medicine 09/24/23 documented as of this encounter
--- OUTSIDE RECORDS SUMMARY | 2025-05-31 07:55 | XMS_ITS | Encounter Summary ---
Author Organization [facility] Address [address] [place] [address] Care Team Providers Care Training And Development Manager Name Role Phone Alexandre Patel M.D. Primary Care andi Reason for Referral * MRI/CAT/PET Scan (Routine) - Closed Specialty Diagnoses / Procedures Referred By Contpete t Referred To Contact Radiology Diagnoses Elevated Prostate-Specific Antigen Procedures MR Prostate without and with IV Contrast Alexandre Patel M.B.B.S., M.D. [address] [place] [address] Phone: tel: fax: [facility] Region Referral ID Status Reason Start Date Expiration Date Visits Re quested Visits Authorized [id number] Closed 05/01/2025 08/01/2026 1 1 Encounter Details Date Type Department Care Team (Late st Contact Info) Description 05/01/2025 Results Follow-Up Department of Family Medicine, [facility], in [place], [place] [address] [place] [address] Alexandre Patel M.B.B.S., M.D. [address] [place] [address] PSA (Prostate-Specific Antigen) Screen, Hemoglobin A1c Social History Tobacco Use Types Packs/Day Years [...] things needed for daily living? No 05/02/2025 [facility] Utilities Answer Date Recorded In the past 12 months has [facility] electric, gas, oil, or water company threatened to shut off services in your home? No 05/02/2025 Housing Stability Answer Date Recorded What is your living situation today? I have a [facility] place to live 05/02/2025 Sex and Gender Information Value Date Recorded Sex Assigned at Male 04/29/2023 9:01 AM CDT Legal Sex Male 11:07 AM CDT Gender Identity Male 04/29/2023 9:01 AM CDT Sexual Orientation Not on file documented as of this encounter Miscellaneous Notes * Telephone Encounter - Triny Lindsey L.PKishaN. - 05/01/2025 12:12 PM CDT SUBJECTIVE CHIEF COMPLAINT / REASON FOR CALL No chief complaint on file. PLAN The following information was provided: Notified Haim of results and Dr Patel's suggestion for MRI Information/Education: patient/caller able to teach back The following references were used: provider Dr Patel * Result Encounter Note - Alexandre Patel M.B.B.S., M.D. - 05/01/2025 11:50 AM CDT PSA continues to rise. I have placed an order for prostate MRI. This would help us evaluate further if a biopsy is indicated. documented in this encounter Plan of Treatment Not on file documented as of this encounter Results * MR Prostate without [...] M.D. IMG MRI PROCEDU RES Final Result documented in this encounter Visit Diagnoses Diagnosis Elevated Prostate-Specific Antigen- Primary Elevated Prostate-Specific Antigen documented in this encounter Additional Health Concerns Assessment Noted Time A fall risk assessment has been complete d for the patient 02/23/2024 8:58 AM CDT documented as of this encounter Care Teams Training And Development Manager Relationship Specialty Start Date End Date Alexandre Patel M.B.B.S., M.D. [address] [place] [phone] PCP - General Family Medicine 09/24/23 documented as of this encounter
--- OUTSIDE RECORDS SUMMARY | 2025-05-31 07:55 | XMS_ITS | Encounter Summary ---
Author Organization [facility] Address [address] [place] [address] Care Team Providers Care Corporate Traffic Manager Name Role Phone Alexandre Patel M.D. Primary Care Maricarmen escamilla Reason for Visit * Reason Comments Med Refill Encounter Details Date Type Department Care Team (Late st Contact Info) Description 04/25/2025 Refill Department of Family Medicine, [facility], in [place], [place] [address] [place] [phone] Alexandre Patel M.B.B.S., MJanett [address] [place] [phone] Med Refill Social History Tobacco Use Types Packs/Day Years Used Date Smoking Tobacco: Former Cigarettes 1 3 1 964 - 07/29/1967 Smokeless Tobacco: Never Alcohol Use Standard Drinks/Week Comments Not Currently 0 (1 standard drink = 0.6 oz pur e alcohol) [facility] Utilities Answer Date Recorded In the past 12 months has [employer], gas, oil, or water company threatened to [...] your living situation today? I have a [facility] place to live 10/21/2024 Sex and Gender Information Value Date Recorded Sex Assigned at Male 04/29/2023 9:01 AM CDT Legal Sex Male 11:07 AM CDT Gender Identity Male 04/29/2023 9:01 AM CDT Sexual Orientation Not on file documented as of this encounter Plan of Treatment Not on file documented as of this encounter Visit Diagnoses Diagnosis Hypertension Essential Primary documented in this encounter Additional Health Concerns Assessment Noted Time A fall risk assessment has been complete d for the patient 02/23/2024 8:58 AM CDT documented as of this encounter Care Teams Corporate Traffic Manager Relationship Specialty Start Date End Date Alexandre Patel M.B.B.SKisha, MErnesto. CATHYI: [id number] [address] [place] [address] [place] [phone] PCP - General Family Medicine 09/24/23 documented as of this encounter
--- OUTSIDE RECORDS SUMMARY | 2025-05-31 07:55 | XMS_ITS | Encounter Summary ---
Author Organization [facility] Address [address] [place] [address] Care Team Providers Care Field Training Agent Name Role Phone Alexandre Patel M.D. [facility] Reason for Referral * Outpatient (Routine) - Closed Specialty Diagnoses / Procedures Referred By Aron finch Referred To Contact Urology Diagnoses Elevated Prostate-Specific Antigen Alexandre Patel M.B.B.S., M.D. [address] [place] [address] Phone: tel: fax: [facility] Referral ID Status Reason Start Date Expiration Date Visits Re quested Visits Authorized [id number] Closed 05/03/2025 11/02/2026 1 1 Reason for Visit * Reason Onset Date Comments Results 05/03/2025 Encounter Details Date Type Department Care Team (Late st Contact Info) Description 05/03/2025 Results Follow-Up Department of Family Medicine, [facility], in [place], [place] [address] [place] [address] Alexandre Patel M.B.B.S., M.D. [address] [place] [phone] MR Prostate without and with IV Contrast Social History Tobacco Use Types Packs/Day Years [...] things needed for daily living? No 05/02/2025 [facility] Utilities Answer Date Recorded In the past 12 months has [facility] electric, gas, oil, or water company threatened to shut off services in your home? No 05/02/2025 Housing Stability Answer Date Recorded What is your living situation today? I have a [facility] place to live 05/02/2025 Sex and Gender Information Value Date Recorded Sex Assigned at Male 04/29/2023 9:01 AM CDT Legal Sex Male 11:07 AM CDT Gender Identity Male 04/29/2023 9:01 AM CDT Sexual Orientation Not on file documented as of this encounter Miscellaneous Notes * Telephone Encounter - Rhonda Lutz R.N. - 05/04/2025 2:57 PM CDT SUBJECTIVE CHIEF COMPLAINT / REASON FOR CALL Results Information Discussed Provided information from provider, no further questions/concerns. Transferred to scheduling desk. PLAN Disposition/Recommendation: patient transferred to the appointment desk The following references were used: none * Result Encounter Note - Alexandre Patel M.B.B.S., M.D. - 05/03/2025 10:19 AM CDT Please inform patient that his MRI was inconclusive. I have placed a referral to Urology as we discussed. documented in this encounter Plan of Treatment Scheduled Referrals Name Type Priority Associated Diagnoses Orde r Schedule Urology - Oncology - prostate consult (clinic) Outpatient Referral Routine Elevated Prostate-Specific Antigen Expected: 05/03/2025, Expires: 08/03/2026 documented as of this encounter Visit Diagnoses Diagnosis Elevated Prostate-Specific Antigen- Primary documented in this encounter Additional Health Concerns Assessment Noted Time A fall risk assessment has been complete d for the patient 02/23/2024 8:58 AM CDT documented as of this encounter Care Teams Field Training Agent Relationship Specialty Start Date End Date Alexandre Patel M.B.B.S., M.D. [address] [place] [phone] PCP - General Family Medicine 09/24/23 documented as of this encounter
--- OUTSIDE RECORDS SUMMARY | 2025-05-31 07:55 | XMS_ITS | Clinical Summary ---
Author Organization [facility] Address [address] [place] [address] Care Team Providers Care Assistant Boiler Operator Name Role Phone Alexandre Patel M.D. Primary Care Maricarmen escamilla Source Comments Patient records contain information from all sites at [facility]. For routine questions regarding patient records, call [phone] during business hours, M-F 8:00 AM - 5:00 PM Central Time. Record requests for emergency care only can be directed to [phone] at any time.[facility] Allergies Active Allergy Reactions Criticality Noted Date Comments Atenolol Other (see comments) 11/19/2016 Pollen Extracts Other (see comments) 05/05/2023 Runny nose Medications multivitamin tablet Take 1 tablet by mouth daily. Active UNABLE TO FIND daily. Med Name: Super C (nature made) Active calcium citrate (CALCITRATE) 950 mg (200 mg calcium) tablet Take by mouth daily with breakfast. [employer] brand Active co-enzyme Q-10 (CO Q-10) 100 mg capsule Take 200 mg by mouth daily. Active UNABLE TO FIND daily. Med Name: Prostate Plus Active aspirin [address] tablet Take 81 mg by mouth daily. Active dapagliflozin propanediol (Farxiga) 5 mg tabletIndicatio ns:Chronic Kidney Disease (CKD), Stage 3b Glomerular Filtration Rate (GFR) 30 To 44 (HCC),Hypertens ion Essential Primary,Protein uria Take 1 tablet (5 mg total) by mouth daily. Brand name only 90 tablet 3 5 10/07/19 26 Active rosuvastatin (Crestor) 10 mg tabletIndicatio ns:Hyperlipidem ia Take 1 tablet (10 mg total) by mouth daily. 90 tablet 3 5 11/30/19 26 Active semaglutide (Ozempic) 1 mg/dose (4 mg/3 mL) injectionIndica tions:Diabetes Mellitus Type 2 With Diabetic Chronic Kidney Disease (HCC) Inject 1 mg under the skin every 7 (seven) days. 3 mL 3 5 Active hydrALAZINE (Apresoline) 50 mg tabletIndicatio ns:Hypertension Essential Primary Take 1 tablet (50 mg total) by mouth 3 (three) times a day. 270 tablet 3 5 12/28/19 26 Active cyanocobalamin (Vitamin B-12) 500 mcg tablet Take 500 mcg by mouth daily. Active cholecalciferol , vitamin D3, (cholecalcifero l) 25 mcg (1,000 Unit) tablet Take 25 mcg by mouth daily. Active vitamin E 180 mg (400 Unit) capsule Take 180 mg by mouth daily. Active magnesium gluconate (Magonate) 27.5 mg of magnesium (500 mg) tablet Take 27.5 mg of magnesium by mouth daily. Active torsemide (Demadex) 20 mg tabletIndicatio ns:Hypertension Essential Primary Take 1 tablet (20 mg total) by mouth daily. 5 02/01/20 26 Active tamsulosin (Flomax) 0.4 mg 24 hr capsuleIndicati ons:Benign Prostatic Hyperplasia Without Obstruction TAKE 1 CAPSULE DAILY 90 capsule 3 5 Active amLODIPine (Norvasc) 10 mg tabletIndicatio ns:Hypertension Essential Primary TAKE 1 TABLET DAILY 90 tablet 3 5 Active fluticasone propionate (Flonase) 50 mcg/actuation nasal sprayIndication s:Rhinitis Allergic USE 2 SPRAYS IN EACH NOSTRIL DAILY 48 g 3 5 Active olmesartan (Benicar) 40 mg tabletIndicatio ns:Hypertension Essential Primary TAKE 1 TABLET DAILY 90 tablet 3 5 Active ascorbic acid, vitamin C, (Vitamin C) 1,000 mg tablet Take 1,000 mg by mouth daily. 0 Active carvediloL (Coreg) 25 mg tabletIndicatio ns:Hypertension Essential Primary Take 1 tablet (25 mg total) by mouth 2 (two) times a day with meals. 180 tablet 3 5 Active semaglutide (Ozempic) 2 mg/dose (8 mg/3 mL) injectionIndica tions:Diabetes Mellitus Type 2 With Diabetic Chronic Kidney Disease (HCC) Inject 2 mg under the skin every 7 (seven) days. 3 mL 11 5 Active carvediloL (Coreg) 25 mg tabletIndicatio ns:Hypertension Essential Primary TAKE 1 TABLET TWICE DAILY WITH MEALS 180 tablet 3 4 05/02/20 25 Discontinu ed(Reorder ) mpyaucpk-rge-ju rrous sulfate (One Daily Multi-Vit w-Mineral) 4.5 mg iron tablet Take 1 capsule by mouth daily. 0 05/02/20 25 Discontinu ed(Therapy completed) Active Problems Patient Care Coordination No te Formatting of this note migh t be different from the original. Release of Information signed for: Dorothy (spouse) - this authorization is good for life and will not unless revoked. Problem Noted Date Diagnosed Date Diabetes Mellitus Type 2 Wit h Diabetic Chronic Kidney Disease 10/24/2024 Assessment & Plan (05/02/2025 12:13 PM CDT): Type 2 Diabetes Mellitus A1c is well-controlled with current treatment, including Ozempic. Plans to increase Ozempic dose to optimize benefits, as he tolerates the medication well without side effects. - Increase Ozempic to 2 mg. - Order A1c tests every 3 months for the next year. Chronic Kidney Disease Under the care of a junior financial analyst with regular follow-ups every six months. Instrument Lens Grinder Apprentice manages kidney function monitoring. - Continue nephrology follow-ups every six months. Orders: semaglutide (Ozempic) 2 mg/dose (8 mg/3 mL) injection; Inject 2 mg under the skin every 7 (seven) days. Hemoglobin A1c; Future Hemoglobin A1c; Future Hemoglobin A1c; Future Hemoglobin A1c; Future Family Medicine office visit (clinic); Future Assessment & Plan (01/31/2025 11:49 AM CDT): Type 2 diabetes mellitus with recent A1c of 7.8%. He is transitioning from 0.5 mg to 1 mg of Ozempic to improve glycemic control and further reduce A1c. Ozempic is also beneficial for renal health, which is advantageous given his chronic kidney disease. - Increase Ozempic to 1 mg weekly by taking two 0.5 mg doses on the same day. - Reassess A1c in April. Chronic kidney disease, unspecified Chronic kidney disease under junior financial analyst care with an upcoming appointment in March. Current medications, including Ozempic, support renal health. - Continue current medication regimen including Ozempic. - Follow up with junior financial analyst in March. Orders: Family Medicine office visit (clinic) Assessment & Plan (12/27/2024 12:16 PM CDT): Kidney function is a concern, especially in the context of upcoming cataract surgery. Under junior financial analyst care and taking Farxiga and torsemide as part of the management plan. Discussed the importance of medication adherence and timing around surgery. - Continue Farxiga as prescribed. - Hold torsemide on the morning of the procedure and take it after the procedure. Diabetes Mellitus Type 2 A1c has increased. Current dose of Ozempic (0.25 mg) maintained for almost a year. Plan to increase the dose to improve glycemic control and benefit kidney function. Discussed insurance limitations on prescription refills. - Increase Ozempic to 0.5 mg starting with the next dose. - Send a new prescription for Ozempic to [facility] for January, with a plan to increase to 1 mg. Orders: semaglutide (Ozempic) 1 mg/dose (4 mg/3 mL) injection; Inject 1 mg under the skin every 7 (seven) days. History Of Falling 09/22/2023 Chronic Kidney Disease (CKD) , Stage 3b Glomerular Filtration Rate (GFR) 30 To 44 09/22/2023 Hypertension Essential Primary 05/05/2023 Assessment & Plan (05/02/2025 12:13 PM CDT): Blood pressure is well-controlled with current medication regimen, including carvedilol. - Renew carvedilol prescription. Orders: carvediloL (Coreg) 25 mg tablet; Take 1 tablet (25 mg total) by mouth 2 (two) times a day with meals. Assessment & Plan (01/31/2025 11:49 AM CDT): Hypertension with current blood pressure readings around 133/70 mmHg. Historically difficult to control with previous readings often at 150-160 mmHg systolic. Current regimen includes amlodipine, carvedilol, hydralazine, Benicar, and torsemide. The junior financial analyst added torsemide earlier this year to aid in blood pressure management. He reports weight gain, which may affect blood pressure control. - Continue current antihypertensive regimen. Orders: torsemide (Demadex) 20 mg tablet; Take 1 tablet (20 mg total) by mouth daily. Assessment & Plan (12/27/2024 12:16 PM CDT): On multiple antihypertensive medications, including amlodipine, carvedilol, olmesartan, and hydralazine. Blood pressure management is crucial, especially with the upcoming surgeries. Refill needed for hydralazine. - Continue amlodipine, carvedilol, olmesartan, and hydralazine as prescribed. - Refill hydralazine prescription. Orders: hydrALAZINE (Apresoline) 50 mg tablet; Take 1 tablet (50 mg total) by mouth 3 (three) times a day. Benign Prostatic Hyperplasia Without Obstruction 05/05/2023 Assessment & Plan (05/02/2025 12:13 PM CDT): Reports nocturia but no difficulty urinating. Currently [...] July, with flexibility to reschedule if needed. Assessment & Plan (01/31/2025 11:49 AM CDT): Assessment & Plan (12/27/2024 12:16 PM CDT): Taking tamsulosin for prostate management. No indication of obstruction or acute issues at this time. - Continue tamsulosin as prescribed. Diabetes Mellitus Type 2 05/05/2023 Hyperlipidemia 05/05/2023 Assessment & Plan (12/27/2024 12:16 PM CDT): Taking rosuvastatin (Crestor) for lipid management. Comfortable with the use of generics for cost-effectiveness. - Continue rosuvastatin as prescribed. 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 Benign Prostatic Hyperplasia Without Obstruction (Primary Dx); Elevated Prostate-Specific Antigen 05/03/2025 6:49 AM CDT - 05/03/2025 11:59 PM CDT Hospital Encounter Department of Radiology in [place], [place] [address], [place] [address] Alexandre Patel M.BKishaBKishaSElizabeth Beard Elevated Prostate-Specific Antigen Discharge Disposition: Home or Self Care 05/03/2025 Results Follow-Up Department of Family Medicine, [facility], in [place], [place] [address] [place] [address] Alexandre Patel M.B.BKishaSElizabeth Beard MR Prostate without and with IV Contrast 05/02/2025 9:00 AM CDT Office Visit Department of [facility], [facility], in [address] [address] Alexandre Patel M.B.B.S., M.D. Johnson, Clair J, R.N. Annual Medicare Examination Return (Primary Dx) 05/02/2025 8:40 AM CDT Office Visit Department of [facility], [facility], in [address] [address] Alexandre Patel M.B.BElizabeth James Benign Prostatic Hyperplasia Without Obstruction (Primary Dx); Hypertension Essential Primary; Diabetes Mellitus Type 2 With Diabetic Chronic Kidney Disease (HCC) 05/01/2025 Results Follow-Up Department of [facility], in [address] [address] Alexandre Patel M.B.BKishaSEilzabeth Beard PSA (Prostate-Specific Antigen) Screen, Hemoglobin A1c 04/27/2025 7:38 AM CDT - 04/27/2025 11:59 PM CDT Hospital Encounter Department of Laboratory Medicine in [address] [address] Alexandre Patel M.B.BKishaSElizabeth Beard Elevated Prostate-Specific Antigen; Diabetes Mellitus Type 2 With Diabetic Chronic Kidney Disease (HCC) Discharge Disposition: Home or Self Care 04/25/2025 Refill Department of [facility], [facility], in [address] [address] Alexandre Patel M.BKishaBKishaSElizabeth Beard Med Refill 04/04/2025 8:30 AM CDT External Outreach Division of Nephrology and Hypertension in [place], [place] [address] [place] [address] Maribell Waters M.D., Ph.D. Chronic Kidney Disease (CKD), Stage 3b Glomerular Filtration Rate (GFR) 30 To 44 (HCC) (Primary Dx); Diabetes Mellitus Type 2 With Diabetic Chronic Kidney Disease (HCC); Hypertension Essential Primary 03/29/2025 Clinical Communication Division of Nephrology and Hypertension in [place], [place] [address] [place] [phone] Maribell Waters M.D., Ph.D. 03/29/2025 Orders Only Division of Nephrology and Hypertension in [place], [place] [address] [place] [phone] Maribell Waters M.D., Ph.D. Urinary Tract Infection Site Not Specified (Primary Dx) 03/28/2025 Refill Department of [facility], [facility], [place], [place] [address] [place] [address] Bree Murillo MPAS, P.A.-C. Med Refill 03/28/2025 Refill Department of Family Medicine, [facility], [place], [place] [address] [place] [address] Alexandre Patel M.B.B.S., M.D. Med Refill 03/27/2025 Orders Only Division of Nephrology and Hypertension in [place], [place] [address] [place] [phone] External, Ordering Provider, Elizabeth 03/27/2025 Orders Only Division of Nephrology and Hypertension in [place], [place] [address] [place] [phone] External, Ordering Provider, Elizabeth 03/27/2025 Orders Only Division of Nephrology and Hypertension in [place], [place] [address] [place] [phone] External, Ordering Provider, Elizabeth from Last 3 Months Immunizations Immunization Administration Dates Next Due HZV (ZOSTAVAX) 03/01/2021,12/21/2020,11/24/2011 PCV13 11/19/2015 PPSV23 12/21/2020,10/12/2007 Tdap 12/21/2020 Tetanus Toxoid, Adsorbed (discontinued) 10/12/19 08 Family History Medical History Relation Name Comments Small cell lung cancer Brother 1 Svitlana Diabetes mellitus type II Brother 2 Don Dialysis care Brother 2 Don Kidney failure Brother 2 Don fall Brother 2 Don broke ribs etc Allergies Daughter Consuelo peanuts Crohn's disease Daughter Consuelo Kidney cancer Father Fredo matestesized; at 54 Hypertension Mother Liliane Blindness Sister Herlinda due to diabetes Diabetes mellitus type II Sister Herlinda Kidney transplant Sister Herlinda Allergies Son 1 Ricardo [place] No Known Problems Son 2 Roman Relation Name Status Comments Brother 1 Svitlana Brother 2 Don Daughter Consuelo Alive Father Fredo (Age 54) Mother iLliane (Age 102) Sister Herlinda Alive Son 1 Ricardo Alive Son 2 Roman Alive Social History Tobacco Use Types Packs/Day Years [...] things needed for daily living? No 05/02/2025 [facility] Utilities Answer Date Recorded In the past 12 months has th e electric, gas, oil, or water company threatened to shut off services in your home? No 05/02/2025 Housing Stability Answer Date Recorded What is your living situation today? I have a [facility] place to live 05/02/2025 Sex and Gender Information Value Date Recorded Sex Assigned at Male 04/29/2023 9:01 AM CDT Legal Sex Male 11:07 AM CDT Gender Identity Male 04/29/2023 9:01 AM CDT Sexual Orientation Not on file Last Filed Vital Signs Vital Sign Reading Time Taken Comments Blood Pressure 135/77 05/02/2025 8:35 AM CDT Pulse 75 05/02/2025 8:35 AM CDT Temperature 36.6 C (97.9 F) 05/02/2025 8:35 AM CDT Respiratory Rate 20 05/02/2025 8:35 AM CDT Oxygen Saturation 97% 12/27/2024 7:48 AM CDT Inhaled Oxygen Concentration - - Weight 78 kg (171 lb 13.6 oz) 05/02/2025 8:35 AM CDT Height 179 cm (5' 10.47) 05/02/2025 8:35 AM CDT Body Mass Index 24.33 05/02/2025 8:35 AM CDT Plan of Treatment Health Maintenance Due Date Last Done Comments Diabetic Eye Exam 1940 Hepatitis B Vaccines (1 of 3 - Risk 3-dose series) 2002 RSV vaccine - (32-36 weeks) or 60+ years (1 - 1-dose 75+ series) 2017 Zoster Vaccines (2 of 3) 04/26/2021 021, 12/21/2020, 11/24/2011 COVID-19 Vaccine ( - season) 2025 Influenza Vaccine (#1) 2025 Diabetic Office Visit with Foot Exam 10/24/2025 10/24/2024 Hemoglobin A1C 10/28/2025 04/27/2025, 01/12, 10/19/2024, Additional history exists Creatinine Level (Kidney Function Test) 03/27/2026 03/27/2025, 10/25/2024, 10/19/2024, Additional history exists Potassium Level 03/27/2026 03/27/2025, 10/15, 10/19/2024, Additional history exists Sodium Level 03/27/2026 03/27/2025, 10/15, 10/19/2024, Additional history exists Urine Albumin 03/27/2026 03/27/2025, 05/2025, 09/25/2023 Office Visit for Blood Pressure Check / Re-check 05/02/2026 05/02/2025 Visit: Chronic Disease, age 18+ 05/02/2026 05/02/2025, 05/02/2025 Visit: Medicare Annual Wellness 05/03/2026 05/02/2025 DTaP,Tdap,and Td Vaccines (2 - Td or Tdap) 12/21/2030 12/21/2020 Pneumococcal vaccine (50+ years) Completed 12/21/2020, 11/19/2015, 10/12/2007 Depression Screening (Annual PHQ-2) Completed 05/02/2025, 10/24/2024 Fall Risk Screen (Annual) Completed 05/02/2025 IPV Vaccines Aged Out No longer eligi ble based on patient's age to complete this topic Procedures Procedure Name Priority Date/Time Associated Diagnosis Comments MR PROSTATE WITHOUT AND WITH IV CONTRAST RAD - Routine (most inpatients and all outpatients) 05/03/2025 8:09 AM CDT Elevated Prostate-Specific Antigen GLUCOSE POCT, B Routine 05/03/2025 7:11 AM CDT HEMOGLOBIN A1C, B Routine 04/27/2025 7:4 6 AM CDT Diabetes Mellitus Type 2 With Diabetic Chronic Kidney Disease (HCC) PROSTATE-SPECIFIC AG (PSA) SCRN, S Routine 04/27/2025 7:46 AM CDT Elevated Prostate-Specific Antigen EXT OUTSIDE LAB TESTS Routine 03/27/2025 8:05 AM CDT EXTP URINALYSIS WITH MICROSCOPY, URINE Routine 03/27/2025 8:05 AM CDT ALBUMIN, RANDOM, U Routine 03/27/2025 8: 05 AM CDT EXTP URINALYSIS WITH MICROSCOPY, URINE Routine 03/27/2025 8:05 AM CDT RENAL FUNCTION PANEL, S Routine 03/27/2025 8:00 AM CDT CBC WITH DIFFERENTIAL, B Routine 03/27/2025 8:00 AM CDT from Last 3 Months Results * MR Prostate without and with [...] left peripheral zone. - Multiple BPH nodules. us Alexandre Troy M.D. IMG MRI PROCEDU RES Final Result * Glucose, POCT (05/03/2025 7:11 AM CDT) Glucose, POCT, B 138 70 - 140 mg/dL 05/03/2025 7:11 AM CDT OW Blood 05/03/2025 7:11 AM CDT 05/03/2025 7:52 AM CDT Generic Rals LAB POCT ORDERABLES-MANUAL Final Result Performing Organization Address [facility]/ZIP Co de Phone Number [facility] [address] [place] [address], [place] [facility] in [place] [address] [place] [address] * (ABNORMAL) PSA (Prostate-Specific Antigen) Screen (04/27/2025 [...] M.D. LAB BLOOD ADD-O N Final Result Performing Organization Address City/[facility]/ZIP Co de Phone Number [facility] [address] [place] [address], [place] [facility] in [place] [address], [place] [address] * (ABNORMAL) Hemoglobin A1c (04/27/2025 7:46 AM CDT) [facility] Hemoglobin A1c, B 7.1(H) 4.2 - 5.6 [...] M.D. LAB BLOOD ADD-O N Final Result Performing Organization Address City/[facility]/ZIP Co de Phone Number [facility] [address] [place] [address], [place] [facility] in [place] [address] [place] [address] * EXT Outside Lab Tests (03/27/2025 8:05 AM CDT) [facility] EXT Miscellaneous See scanned report [facility] 03/27/2025 8:05 AM CDT Narrative [facility] - 03/29/2025 10:35 AM CDT External results verified in Extract by Ramona Ortega on 03/29/2025 at 10:34 AM. us Ordering Provider External M.DKisha LAB BLOOD NON AD D-ON Final Result Performing Organization Address City/[facility]/ZIP Co de Phone Number [facility] [address] [place] [address], [facility] [phone] * (ABNORMAL) EXT Urinalysis with Microscopy, Urine (03/27/2025 8:05 AM CDT) Only the most recent of2 resultswithin the time period is included. [facility] EXT Red Blood Cells, U 2-5(A) 0 - 2 [facility] EXT White Blood Cells, U 10-25(A) 0 - 5 [facility] EXT Squamous Cells Few None-Few [facility] EXT Bacteria Moderate(H ) None [facility] 03/27/2025 8:05 AM CDT Narrative [facility] - 03/27/2025 1:38 PM CDT External results verified in Extract by Ramona Ortega on 03/27/2025 at 01:34 PM. us Ordering Provider External M.DKisha LAB URINE ORDERA BLES Final Result Performing Organization Address [facility]/ZIP Co de Phone Number [facility] [address] [place] [address], [facility] [phone] * (ABNORMAL) Albumin, Random, Urine (03/27/2025 8:05 AM CDT) EXT Creatinine, Urine 127.9 mg/dL [facility] EXT Microalbumin-R andom, U 35 mg/dL [facility] EXT Albumin/Creati nine Ratio 270(H) 0 - 30 [facility] 03/27/2025 8:05 AM CDT Narrative [facility] - 03/27/2025 10:36 AM CDT Source result document attached to Order Number [id number] ([id number]) dated 03/27/2025. External results verified in Extract by Ramona Ortega on 03/27/2025 at 10:32 AM. us Ordering Provider External M.DKisha LAB URINE ORDERA BLES Final Result [facility] [address] [place] [address], [facility] [phone] * (ABNORMAL) Renal Function Panel (03/27/2025 8:00 AM CDT) EXT Sodium 139 135 - 149 mmol/L [facility] EXT Potassium 4.2 3.6 - 5.1 mmol/L [facility] EXT Chloride 103 96 - 114 mmol/L [facility] EXT CO2 29 20 - 32 mmol/L [facility] EXT Anion Gap 7 7 - 15 mEq/L [facility] EXT BUN (Blood Urea Nitrogen) 28 7 - 30 mg/dL [facility] EXT Creatinine 1.9(H) 0.5 - 1.5 mg/dL [facility] EXT Estimated GFR (eGFR) 35 ml/min [facility] EXT Calcium, Total 9.7 8.4 - 10.6 mg/dL [facility] EXT Glucose 147(H) 60 - 115 mg/dL [facility] EXT Albumin 4.6 3.3 - 5.0 g/dL [facility] EXT Phosphorus (Inorganic), S 3.7 2.5 - 4.5 mg/dL [facility] 03/27/2025 8:00 AM CDT Narrative [facility] - 03/27/2025 10:36 AM CDT Source result document attached to Order Number [id number] ([id number]) dated 03/27/2025. External results verified in Extract by Ramona Ortega on 03/27/2025 at 10:32 AM. us Ordering Provider External Elizabeth LAB BLOOD ADD-ON Final Result [facility] [address] [place] [address] * CBC with Differential, Blood (03/27/2025 8:00 AM CDT) EXT Leukocytes 7.74 4.50 - 11.00 K/uL [facility] EXT RBC 4.96 4.30 - 5.90 m/uL [facility] EXT Hemoglobin 14.1 13.5 - 17.5 gm/dL [facility] EXT Hematocrit 43.3 37.0 - 53.0 % [facility] EXT MCV 87 80 - 100 fL [facility] EXT Platelet Count 218 140 - 440 K/uL [facility] 03/27/2025 8:00 AM CDT Narrative [facility] - 03/27/2025 10:36 AM CDT External results verified in Extract by Ramona Ortega on 03/27/2025 at 10:32 AM. us Ordering Provider External M.D. LAB BLOOD ADD-ON Final Result [facility] [address] [place] [address], [facility] [phone] from Last 3 Months Insurance [employer] Care Teams Assistant Boiler Operator Relationship Specialty Start Date End Date Alexandre Patel M.B.B.SKisha, MErnesto. [address] [place] [phone] PCP - General Family Medicine 09/24/23
--- OUTSIDE RECORDS SUMMARY | 2025-05-31 07:56 | XMS_ITS | Clinical Summary ---
Author Organization [facility] Address [address] [place] [id number] Care Team Providers Care Seed Service Advisor Name Role Phone Clinic, No Pcp Or Primary Care Provider Unavaila ble Social History Tobacco Use Types Packs/Day Years Used Date Smoking Tobacco: Never Assessed Sex and Gender Information Value Date Recorded Sex Assigned at Not on file Legal Sex Male 11:58 AM CDT Gender Identity Not on file Sexual Orientation Not on file [place] [id number] [employer] [place] Care Teams Seed Service Advisor Relationship Specialty Start Date End Date Clinic, No Pcp Or . PCP - General 03/01/24
[2025-05-31 08:06] VITALS: BP 143/86; PULSE 78; RESP 16; O2SAT 96
--- NOTE | 2025-05-31 08:33 | ED.GENADULT ---
HPI - General Adult General Time Seen by Provider: 08:33 Date Seen: 05/31/25 Chief complaint: Extremity Pain/Injury, Lower Stated complaint: L big toe injury/infection Time Seen by Provider: 05/31/25 08:33 Source: patient, RN notes reviewed and old records reviewed Mode of arrival: ambulatory Limitations: no limitations History of Present Illness HPI narrative: This 85-year-old male is ambulatory into the ER with concern of a 1st left toe infection. He caught his toe on a drawer pole in the bathroom about a week ago, ripping the 1st toenail almost completely off. He did not take it off all the way to protect the underlying tissue below the toenail. He has been using daily dressing with Neosporin. Yesterday he took the Band-Aid off and thought there were little beige bugs in the wound. He got in the shower, washed it off and then used hydrogen peroxide after. He has not noted any fevers or chills. He did note that the toe looked all read and swollen. He is coming in with concern of infection. Past medical history listed is type 2 diabetes, hypertension, chronic kidney disease stage IIIB, history of BPH. Review of his chart shows a creatinine of 1.9 on 03/27/2025 giving him an estimated GFR of 35. Related Data Home Medications ?Medication ?Instructions ?Recorded ?Confirmed amlodipine 10 mg tablet 10 mg PO QDAY 03/08/24 05/31/25 aspirin 81 mg tablet,delayed 81 mg PO QDAY 03/08/24 05/31/25 release (Adult Aspirin Regimen) calcium citrate 200 mg PO QDAY 03/08/24 05/31/25 carvedilol 25 mg tablet 25 mg PO BID 03/08/24 05/31/25 cholecalciferol (vitamin D3) 125 125 mcg PO QDAY 03/08/24 05/31/25 mcg (5,000 unit) capsule coenzyme Q10 100 mg capsule (Co 200 mg PO QDAY 03/08/24 05/31/25 Q-10) fluticasone propionate 50 2 spray intranasal QDAY 03/08/24 05/31/25 mcg/actuation nasal spray,suspension (Flonase Allergy Relief) hydralazine 50 mg tablet 50 mg PO TID 03/08/24 05/31/25 magnesium glycinate 400 mg PO QDAY 03/08/24 05/31/25 mecobalamin (vitamin B12) 1,000 1,000 mcg PO QDAY 03/08/24 05/31/25 mcg chewable tablet (B12 Active) multivitamin 1 tab PO QDAY 03/08/24 05/31/25 olmesartan 40 mg tablet 40 mg PO QDAY 03/08/24 05/31/25 rosuvastatin 10 mg tablet 10 mg PO QDAY 03/08/24 05/31/25 semaglutide 0.25 mg or 0.5 mg (2 1 mg subcut QWEEK 03/08/24 05/31/25 mg/3 mL) subcutaneous pen injector tamsulosin 0.4 mg capsule 0.4 mg PO QDAY 03/08/24 05/31/25 vitamin E (dl, acetate) 180 mg 180 mg PO QDAY 03/08/24 05/31/25 (400 unit) capsule dapagliflozin propanediol 5 mg 5 mg PO QAM 09/27/24 05/31/25 tablet (Farxiga) Previous Rx's ?Medication ?Instructions ?Recorded cephalexin 500 mg tablet 500 mg PO BID #14 tabs 05/31/25 Allergies Allergy/AdvReac Type Severity Reaction Status Date / Time No Known Drug Allergies Allergy Verified 05/31/25 08:06 Review of Systems Narrative: As per HPI. [facility] Social History Smoking Status: Former smoker How often do you have a drink containing alcohol: never AUDIT-C Alcohol total score: 0 Non-prescribed substance use: denies use Exam Const: Vital Signs, click to edit/add: Vital Signs - 24 hr 05/31/25 08:06 Pulse Rate [Pulse Oximeter] 78 Respiratory Rate 16 Blood Pressure [Ri ght Upper Arm] 143/86 H Pulse Oximetry 96 Oxygen Delivery Me thod Room Air This 85-year-old male is alert, interactive, no apparent distress. CV regular rate and rhythm, no significant murmur heard. Breathing easy on room air. His left 1st toe has some ecchymosis along the and but the ball the seems erythematous, tender. There is no drainage. His great toenail is lifting, just attached at the base. I do reflect this back and he has normal base to the toenail. I see no purulent drainage, there certainly are no bugs visualized. Documenting provider has reviewed patient's vital signs: yes Course Course ED Course: Will obtain an x-ray just to rule out underlying fracture. He obviously is developing some soft tissue infection around this toe. Did look up renal dosing for Keflex, he would be 500 mg twice a day based on his creatinine from March of this year. Do not feel we need to update this as we have a creatinine from within a reasonable time frame. He is hemodynamically stable, no fevers. Vital Signs Vital signs: Initial Vital Signs Temperature Source Temporal Artery Scan 05/31/25 08:06 Pulse Rate 78 05/31/25 08:06 Respiratory Rate 16 05/31/25 08:06 Blood Pressure 143/86 H 05/31/25 08:06 Blood Pressure Mean 105 05/31/25 08:06 Pulse Oximetry 96 05/31/25 08:06 Oxygen Delivery Method Room Air 05/31/25 08:06 Vital Signs Pulse Rate 78 05/31/25 08:06 Respiratory Rate 16 05/31/25 08:06 Blood Pressure 143/86 H 05/31/25 08:06 Pulse Oximetry 96 05/31/25 08:06 Oxygen Delivery Method Room Air 05/31/25 08:06 Pulse Rate 78 05/31/25 08:06 Respiratory Rate 16 05/31/25 08:06 Blood Pressure 143/86 H 05/31/25 08:06 Pulse Oximetry 96 05/31/25 08:06 Oxygen Delivery Method Room Air 05/31/25 08:06 Medical Decision Making Imaging Data XR toe: Attestation: I have reviewed the pertinent imaging results. My impression: Some lucency seen in the toe but do not see definite fracture, will await radiology over read. Radiologist's impression: Patient: PILAR WHALEN Facility:?[facility] Patient ID:?[id number] Site Patient ID:?[id number]. Site :?[id number] Study:?XRay-Extremity Left [id number]/31/2025 9:05:36 AM Ordering Physician:Zeinab Momin Final Report: Indication: Injury around nail bed Technique: Left 1st toe 3 views. Comparison: None. Findings: Bones: Alignment is normal. No definite fractures or bone lesions. Linear lucency projecting over the lateral and distal aspect of the 1st proximal phalanx, however this is favored artifactual due to overlapping soft tissue Joint spaces: Unremarkable. Soft tissues: Unremarkable. Impression: No definite acute fracture. Linear lucency projecting over the lateral and distal aspect of the 1st proximal phalanx, however this is favored artifactual due to overlapping soft tissue. Please correlate for point tenderness in this location No definite evidence of soft tissue or nailbed abnormality Dictated by Sherlyn Ochoa MD @ 05/31/2025 9:25:21 AM (Electronic Signature) Discharge Plan Discharge Clinical Impression: Cellulitis of great toe Qualifiers: Laterality: left Qualified Code(s): L03.032 - Cellulitis of left toe Patient Disposition: Home, Self-Care Condition: Stable Instructions: Cellulitis (ED) Additional Instructions: There is no evidence of fracture on your x-ray which is good. Do agree that you are developing infection in this toe within the soft tissues, we call this cellulitis. Will initiate antibiotic with Keflex and have dosed this for your kidneys. Recommend using bacitracin or Vaseline and avoiding Neosporin. Neosporin can have a reaction in many people, Dermatology usually does not use Neosporin with patient's any longer. Light bandaging around the toe to help keep the nail in place. Do recommend trying to stay off your foot and elevate the foot for the next few days, this will help increase the chances for resolution of the infection. You need to watch your toe closely for worsening infection in if there are concerns, please seek re-evaluation. Fine to shower daily, would not use daily peroxide as this can inhibit wound healing. Activity Level: Activity as Tolerated Prescriptions: New cephalexin 500 mg tablet 500 mg PO BID Qty: 14 0RF No Action amlodipine 10 mg tablet 10 mg PO QDAY aspirin [Adult Aspirin Regimen] 81 mg tablet,delayed release (DR/EC) 81 mg PO QDAY calcium citrate 200 mg (950 mg) tablet 200 mg PO QDAY carvedilol 25 mg tablet 25 mg PO BID Rx Instructions: must administer with a meal/food coenzyme Q10 [Co Q-10] 100 mg capsule 200 mg PO QDAY fluticasone propionate [Flonase Allergy Relief] 50 mcg/actuation spray,suspension 2 spray intranasal QDAY Rx Instructions: administer into each nostril hydralazine 50 mg tablet 50 mg PO TID multivitamin Tablet 1 tab PO QDAY olmesartan 40 mg tablet 40 mg PO QDAY rosuvastatin 10 mg tablet 10 mg PO QDAY semaglutide 0.25 mg or 0.5 mg (2 mg/3 mL) pen injector 1 mg subcut QWEEK Rx Instructions: for 4 weeks tamsulosin 0.4 mg capsule 0.4 mg PO QDAY magnesium glycinate 100 mg magnesium capsule 400 mg PO QDAY mecobalamin (vitamin B12) [B12 Active] 1,000 mcg tablet,chewable 1,000 mcg PO QDAY cholecalciferol (vitamin D3) 125 mcg (5,000 unit) capsule 125 mcg PO QDAY vitamin E (dl, acetate) 180 mg (400 unit) capsule 180 mg PO QDAY dapagliflozin propanediol [Farxiga] 5 mg tablet 5 mg PO QAM Follow Up/Referrals: Provider,Not a Local [Non-Staff, Family Practice] Stand Alone [facility]: [facility] Inst[facility]
--- NOTE | 2025-05-31 08:43 | CRLHL7_ITS ---
For Patients: As a result of the Century Cures Act, medical imaging exams and procedure reports are released immediately into your electronic medical record. You may view this report before your referring provider. If you have questions, please contact your health care provider. Indication: Injury around nail bed Technique: Left 1st toe 3 views. Comparison: None. Findings: Bones: Alignment is normal. No definite fractures or bone lesions. Linear lucency projecting over the lateral and distal aspect of the 1st proximal phalanx, however this is favored artifactual due to overlapping soft tissue Joint spaces: Unremarkable. Soft tissues: Unremarkable. Impression: No definite acute fracture. Linear lucency projecting over the lateral and distal aspect of the 1st proximal phalanx, however this is favored artifactual due to overlapping soft tissue. Please correlate for point tenderness in this location No definite evidence of soft tissue or nailbed abnormality Dictated by Sherlyn Ochoa MD @ 05/31/2025 9:25:21 AM (Electronically Signed)
== END 2025-05-31 09:44 | disposition home or self-care (01) ==
PROVIDERS: Emergency Provider Family Medicine; PCP Family Medicine
DX: L03.032 Cellulitis of left toe (principal)
CPT/HCPCS: 73660; 99283